=== PATIENT | female | born 1995 | race Caucasian/White ===

== ENCOUNTER → 2017-05-29 | Outpatient (CLI) | payer OTHER ==
[2017-05-29 14:49] LABS: LUTEINIZING HORMONE 7.3 mIU/mL; PROLACTIN 15.6 NG/ML
[2017-05-29 14:51] LABS: FREE T4 1.03 NG/DL (0.76-1.46)
[2017-05-29 14:57] LABS: PROGESTERONE 7.4 NG/ML
== END ==
LOC: M SMT 09:08
PROVIDERS: ATTEND Specialist
DX: N93.8 Other specified abnormal uterine and vaginal bleeding (principal)

== ENCOUNTER 2020-09-20 16:29 | Emergency (ER) | payer MEDICAID, OTHER ==
[~2020-09-20] VITALS: Ht 162.6 cm; Wt 99.2 kg
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
[2020-09-20] MEDS ORDERED: SUBO8MIS (16:59)
[2020-09-20] MEDS ORDERED: ESCI20TA16 (16:59)
[2020-09-20 19:19] LABS: BASO # 0.1 10^3/uL (0.0-0.2); BASO % 0.5 % (0.0-1.0); EOS # 0.2 10^3/uL (0.0-0.5); HEMOGLOBIN 11.9 g/dl (12.0-15.5); LYMPH # 2.9 10^3/uL (1.5-5.0); LYMPH % 30.2 % (24.0-44.0); MEAN CORPUSCULAR HEMOGLOBIN 27.9 pg (27.0-33.0); MEAN CORPUSCULAR HGB CONC 31.3 g/dl (32.0-36.5); MONO # 0.5 10^3/uL (0.0-0.8); MONO % 5.5 % (0.0-5.0); NEUTROPHILS % 61.5 % (36.0-66.0); PLATELET COUNT, AUTOMATED 333 10^3/uL (150-450); RED BLOOD COUNT 4.27 10^6/uL (4.00-5.40); WHITE BLOOD COUNT 9.7 10^3/uL (4.0-10.0)
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
[2020-09-20 19:45] LABS: BLOOD UREA NITROGEN 5 MG/DL (7-18); CALCIUM LEVEL 8.6 MG/DL (8.5-10.1); CARBON DIOXIDE LEVEL 28 MEQ/L (21-32); CHLORIDE LEVEL 105 MEQ/L (98-107); CREATININE FOR GFR 0.72 MG/DL (0.55-1.30); GLOMERULAR FILTRATION RATE > 60.0 (>60); GLUCOSE, FASTING 115 MG/DL (70-100); HCG, SERUM QUANTITATIVE 60 MIU/ML; POTASSIUM SERUM 3.8 MEQ/L (3.5-5.1); SODIUM LEVEL 140 MEQ/L (136-145)
--- NOTE | 2020-09-20 20:38 | REPVR ---
PROCEDURE INFORMATION: Exam: US First Trimester, Transabdominal Exam date and time: 09/20/2020 7:24 PM Age: 25 years old Clinical indication: Lmp or gestational age (in weeks): 07/16/2020; Other: Vaginal bleeding; ; Additional info: Vaginal bleeding preg TECHNIQUE: Imaging protocol: Real-time transabdominal obstetrical ultrasound of the maternal pelvis and a first trimester , less than 14 weeks 0 days, with image documentation. COMPARISON: No relevant prior studies available. FINDINGS: Gestation: There is an irregular possible gestational sac in the lower uterine segment and endocervical canal. No definite pole is seen. No yolk sac is seen. BIOMETRY: Gestational age (AUA): 9 weeks 3 days based on mean sac diameter. Estimated due date (AUA): 04/22/2021. Mean sac diameter: 0.77 cm. MATERNAL: Uterus: Unremarkable. Cervix: Unremarkable. Right adnexa: 1.3 cm cyst in the right ovary. Left adnexa: Left ovary is unremarkable. Intraperitoneal space: No intraperitoneal free fluid. IMPRESSION: Irregular possible gestational sac in the lower uterine segment without a definite pole or yolk sac concerning for in progress. Electronically signed by: Gigi Corea On 09/20/2020 20:37:23 PM
[2020-09-20 21:09] VITALS: BP 141/76
[2020-09-20 22:07] LABS: CHLAMYDIA DNA AMPLIFICATION NEGATIVE (NEGATIVE); GC DNA AMPLIFICATION NEGATIVE (NEGATIVE)
== END 2020-09-20 21:11 | disposition home or self-care (01) ==
LOC: M ED 16:29
DX: O20.0 Threatened abortion (principal); O26.891 Other specified pregnancy related conditions, first trimester; N80.9 Endometriosis, unspecified; O99.331 Smoking (tobacco) complicating pregnancy, first trimester; F17.210 Nicotine dependence, cigarettes, uncomplicated; Z79.899 Other long term (current) drug therapy; Z79.891 Long term (current) use of opiate analgesic; Z3A.09 9 weeks gestation of pregnancy

== ENCOUNTER → 2020-09-23 | Outpatient (CLI) | payer MEDICAID ==
[~2020-09-23] MED LIST: ESCI20TA16; SUBO8MIS
== END ==
LOC: M LAB 10:13
PROVIDERS: ATTEND Advanced Practice Midwife
DX: N93.9 Abnormal uterine and vaginal bleeding, unspecified (principal)

== ENCOUNTER → 2020-10-03 | Outpatient (REF) | payer OTHER ==
[~2020-10-03] MED LIST changes: +IBUP-1022 PO; +OXYC1TAB23 PO
[2020-10-03 16:28] LABS: THYROID STIMULATING HORMONE 1.51 uIU/ML (0.358-3.740)
== END ==
LOC: M PLALAB 13:35
PROVIDERS: ATTEND Advanced Practice Midwife
DX: O03.9 Complete or unspecified spontaneous abortion without complication (principal); N96 Recurrent pregnancy loss

== ENCOUNTER → 2020-10-05 | Outpatient (REF) | payer OTHER | LOC: M PLALAB 11:32 | PROVIDERS: ATTEND Specialist | DX: N92.6 Irregular menstruation, unspecified (principal) ==

== ENCOUNTER 2020-10-06 12:51 | Day surgery (SDC) | payer OTHER, SELFPAY ==
[~2020-10-06] VITALS: Ht 162.6 cm; Wt 96.2 kg
[~2020-10-06 12:51] MED LIST changes: -IBUP-1022 PO; -OXYC1TAB23 PO
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
--- OUTSIDE RECORDS SUMMARY | 2020-10-06 12:56 | CCD ---
Author Author [facility] Organization [facility] Address Unknown Phone Unavailable Care Team Providers Care Embroidery Machine Operator Name Role Phone Susan Nicole Unavailable PROBLEMS Type Condition ICD9-CM Code [id number] Code Onset Dates Condition S tatus SNOMED Code Notes Problem Fatigue 780.79 Active 28831343 Problem Abnormal menstrual periods N92.6 Active 55222 007 Problem Constipation 564.00 Active 59528111 ALLERGIES Allergen (clinical drug ingredient) Drug/Non Drug Allergy do cumented on EMR Reaction Allergy Type Onset Date Status hay fever Unknown Non Drug Allergy Active ENCOUNTERS from 1994 to 2020-10-04 Encounter Location Date Provider Diagnosis [facility] [address] [place] [phone] Sep, Susan Corey Recurrent loss N96 and Spontaneous in first trimester O03.9 IMMUNIZATIONS Vaccine Route Administration Date Status TDAP IM Intramuscular Jun 14, 2014 Administered Influenza (6mo & up) Fluzone IM Intramuscular Jun 14, 2014 Ad ministered SOCIAL HISTORY Tobacco Use: Social History Observation Description Date Details (start date - stop date) Current Smoker Sex Assigned At : Social History Observation Description Sex Assigned At Unknown Alcohol Screening: Question Answer Notes Did you have a drink containing alcohol in the past year? No Points 0 Interpretation Negative Tobacco Use: Question Answer Notes Are you a: current every day smoker REASON FOR REFERRAL No Information VITAL SIGNS Weight 217.0 lbs Sep, Weight-kg 98.43 kg Sep, Height 5'4" in Sep, BMI 37.24 kg/m2 Sep, Blood pressure systolic 134 mm Hg Sep, Blood pressure diastolic 84 mm Hg Sep, MEDICATIONS Medication SIG (Take, Route, Frequency, Duration) Notes Start Da te End Date Status Flonase 50 MCG/ACT 1 spray in each nostril Nasally Twice a day f or 30 day(s) Aug, Not-Taking Lexapro 20 MG 1 tablet Orally Once a day Active Sudafed 30 MG 1 tablet as needed Orally every 6 hrs for 5 day(s) Aug, Not-Taking Suboxone 8-2 MG 1 film under the tongue and allow to dissolve Sublingual Twice a day Active Neti Pot Sinus Wash 2300-700 MG as directed Nasally bid for 10 d ay(s) Aug, Not-Taking Zyrtec Allergy 10 MG 1 capsule Orally Once a day for 30 day(s) Active PROCEDURES No Information RESULTS Component Value Reference Range TSH Reviewed date:10/04/2020 09:41:55 Interpretation: Performing Lab:[facility], [facility] [address] [address] , [place] [address] THYROID STIMULATING HORMONE 1.510 0.358-3.740 REASON FOR VISIT F/U Miscarriage MEDICAL (GENERAL) HISTORY Type Description Date Medical History Depression/Anxiety Surgical History tonsillectomy 2011 Surgical History wisdom teeth extract 2012 Goals Section No Information Health Concerns No Information MEDICAL EQUIPMENT No Information MENTAL STATUS No Information FUNCTIONAL STATUS No Information ASSESSMENTS Encounter Date Diagnosis Assessment Notes Treatment Notes Treatm ent Clinical Notes Sep, Recurrent loss (ICD-10 - N96) Sep, Spontaneous in first trimester (ICD-10 - O03.9) PLAN OF TREATMENT Treatment Notes Test Name Order Date HCG, SERUM QUANTITATIVE 2020-10-04 Antiphospholipid Syndrome Comp 2020-10-04 Lupus Anticoagulant with RFX Send Out ONLY 2020-10-04 [facility] Pelvis non-OB COMPLETE US 2020-10-04 Next Appt Details 3 Weeks Reason:F/U Provider Name:Susan Nicole, 2020-10-27 1 0:00:00 AM, [address] [place], [phone], Follow Up:3 WeeksF/U
[2020-10-06] MEDS ORDERED: ROCURONIUM BROMIDE 50 MG/5 ML VIAL As Ordered ONE (13:43)
[2020-10-06] MEDS ORDERED: propofoL 200 MG/20 ML VIAL As Ordered ONE (13:44)
[2020-10-06] MEDS ORDERED: LIDOCAINE 2% 100MG/5ML SDV (FOR ANES.) As Ordered ONE (13:44)
[2020-10-06] MEDS ORDERED: MIDAZOLAM INJ 2MG/2ML VIAL (J2250 PER 1MG) As Ordered ONE (13:44)
[2020-10-06] MEDS ORDERED: dexameTHASONE 4 MG/ML 1ML VIAL (J1100 PER 1MG) As Ordered ONE (13:44)
[2020-10-06] MEDS ORDERED: BUPIVACAINE HCL 0.25% 30ML VIAL As Ordered ONE (13:46)
[2020-10-06] MEDS ORDERED: fentaNYL 100 MCG/2 ML INJECTION (J3010) As Ordered ONE (13:46)
[2020-10-06] MEDS ORDERED: SUGAMMADEX SODIUM 500 MG/5 ML VIAL (BRIDION) As Ordered ONE (14:47)
[2020-10-06] MEDS ORDERED: ONDANSETRON 4MG/2ML VIAL As Ordered ONE (14:47)
[2020-10-06] MEDS ORDERED: KETOROLAC 60MG 2ML VIAL As Ordered ONE (14:48)
[2020-10-06] MEDS ORDERED: NEOSTIGMINE 10MG/10ML VIAL (J2710 PER 0.5MG) As Ordered ONE (15:09)
[2020-10-06] MEDS ORDERED: GLYCOPYRROLATE INJ 0.2 MG/ML 2 ML VIAL As Ordered ONE (15:09)
--- NOTE | 2020-10-06 15:31 | ROOPDOC ---
[facility] Report Of Operation Report of Operation DATE OF PROCEDURE: 10/06/20 PREPROCEDURE DIAGNOSES: left ectopic POSTPROCEDURE DIAGNOSES: right isthmic fallopian tube PROCEDURE: Laparoscopic right salpingostomy. SURGEON: Fidelina Omer MD ANESTHESIA: Gen. endotracheal anesthesia. ESTIMATED BLOOD LOSS: Approximately 20 mL. COMPLICATIONS: None. FINDINGS: 1 cm ectopic in the isthmic portion of the right fallopian tube. Otherwise, normal uterus, ovaries, and left fallopian tube. normal upper abdomen. Approximately 50 mL of blood was noted in the posterior cul-de-sac. PROCEDURE NOTE: Patient was taken to the operating room where general endotracheal anesthesia induced. She was prepped draped in a sterile fashion in the dorsal lithotomy position. A sponge stick was placed in the vagina and uses manipulator. The bladder was emptied with a catheter. A periumbilical incision was made with the scalpel. A Veress needle was placed through this incision while tenting up on the skin of the abdomen. Intra-abdominal location of the Veress needle was assessed with use of a saline filled syringe. A pneumoperitoneum was created. The Veress needle was removed. A 5 mm trocar using the Visiport was inserted through this incision. A 5 and 8 mm suprapubic port was placed under direct visualization without difficulty. A 5 mm scope with camera used to visualize the abdomen and pelvis. The patient was placed in Trendelenburg position. A grasping instrument was used to elevate the right fallopian tube. A Harmonic scalpel device was used to make an incision in the antimesenteric side of the fallopian tube in the isthmic region. A grasping instrument was used to milk the ectopic gestation out of the tube. Specimen was removed intact through the 8 mm port with a grasping instrument. Good hemostasis of the right fallopian tube was noted. Suction rn review was used to evacuate blood from the pelvis.. All instruments were removed. The pneumoperitoneum was released. The skin was closed with 4-0 Monocryl subcuticular sutures. Sponge, instrument and needle counts were correct. FIDELINA OMER MD Oct 06, 2020 15:31
[2020-10-06] MEDS ORDERED: MEPERIDINE INJ 25 MG/ML VIAL (J2175) As Ordered ONE (15:37)
[2020-10-06] MEDS ORDERED: oxyCODONE 5MG TAB As Ordered ONE (15:49)
[2020-10-06] MEDS: oxyCODONE 5MG TAB PO PRN ×2 (15:54→16:24)
[2020-10-06] MEDS ORDERED: LR 1,000 ML IV SCH ×2 (16:00)
[2020-10-06] MEDS ORDERED: ONDANSETRON 4MG/2ML VIAL IV PRN (16:00)
[2020-10-06] MEDS ORDERED: METOCLOPRAMIDE INJ 10MG/2ML VIAL (J2765 PER 1) IV PRN (16:00)
[2020-10-06] MEDS ORDERED: fentaNYL 100 MCG/2 ML INJECTION (J3010) IV PRN (16:00)
[2020-10-06] MEDS ORDERED: PERCOCET 5MG/325MG TAB PO PRN (16:00)
[2020-10-06] MEDS ORDERED: MEPERIDINE INJ 25 MG/ML VIAL (J2175) IV PRN (16:00)
[2020-10-06] MEDS ORDERED: OXYC1TAB23 PO (16:39)
[2020-10-06] MEDS ORDERED: IBUP-1022 PO (16:40)
[2020-10-06 17:30] VITALS: BP 126/68
== END 2020-10-06 17:30 | disposition home or self-care (01) ==
LOC: M SDC 12:51
PROVIDERS: ATTEND Specialist
DX: O00.80 Other ectopic pregnancy without intrauterine pregnancy (principal); F32.9 Major depressive disorder, single episode, unspecified; F41.9 Anxiety disorder, unspecified; F17.210 Nicotine dependence, cigarettes, uncomplicated
CPT/HCPCS: 59150; 88305; J1100; J1885; J2175; J2250; J2405; J2710; J3010; U0002

== ENCOUNTER → 2021-11-19 | Outpatient (REF) | payer OTHER ==
[~2021-11-19] MED LIST changes: +IBUP-1022 PO; +OXYC1TAB23 PO
== END ==
LOC: M SFHCWAGY 10:25
PROVIDERS: ATTEND Specialist
DX: Z01.419 Encounter for gynecological examination (general) (routine) without abnormal findings (principal)

== ENCOUNTER 2022-03-23 16:53 | Emergency (ER) | payer OTHER ==
[~2022-03-23] VITALS: Ht 162.6 cm; Wt 94.3 kg
[2022-03-23 19:22] LABS: BASO % 0.3 % (0.0-1.0); EOS # 0.1 10^3/uL (0.0-0.5); EOS % 0.8 % (0.0-3.0); HEMOGLOBIN 11.9 g/dl (12.0-15.5); LYMPH # 2.4 10^3/uL (1.5-5.0); LYMPH % 31.3 % (24.0-44.0); MEAN CORPUSCULAR HEMOGLOBIN 29.7 pg (27.0-33.0); MEAN CORPUSCULAR HGB CONC 33.1 g/dl (32.0-36.5); MEAN CORPUSCULAR VOLUME 89.8 fl (80.0-96.0); MONO # 0.5 10^3/uL (0.0-0.8); MONO % 6.1 % (2.0-8.0); NEUTROPHILS # 4.6 10^3/uL (1.5-8.5); NEUTROPHILS % 61.1 % (36.0-66.0); PLATELET COUNT, AUTOMATED 290 10^3/uL (150-450); RED BLOOD COUNT 4.01 10^6/uL (4.00-5.40); WHITE BLOOD COUNT 7.5 10^3/uL (4.0-10.0)
[2022-03-23 20:42] VITALS: BP 120/70
== END 2022-03-23 20:43 | disposition home or self-care (01) ==
LOC: M ED 16:53
DX: O02.1 Missed abortion (principal); O99.341 Other mental disorders complicating pregnancy, first trimester; F32.A Depression, unspecified; F41.9 Anxiety disorder, unspecified; Z79.899 Other long term (current) drug therapy; Z79.891 Long term (current) use of opiate analgesic; O99.331 Smoking (tobacco) complicating pregnancy, first trimester; F17.200 Nicotine dependence, unspecified, uncomplicated; Z3A.00 Weeks of gestation of pregnancy not specified

== ENCOUNTER → 2022-03-25 | Outpatient (CLI) | payer OTHER | LOC: M LAB 12:16 | PROVIDERS: ATTEND Obstetrics & Gynecology | DX: Z34.81 Encounter for supervision of other normal pregnancy, first trimester (principal); Z3A.01 Less than 8 weeks gestation of pregnancy ==

== ENCOUNTER → 2022-04-19 | Outpatient (REF) | LOC: M EMP 09:56 | PROVIDERS: ATTEND Family Medicine | DX: Z11.52 Encounter for screening for COVID-19 (principal) ==

== ENCOUNTER → 2022-04-24 | Outpatient (CLI) | payer OTHER ==
[2022-04-24 15:59] LABS: FREE T4 0.97 NG/DL (0.76-1.46); THYROID STIMULATING HORMONE 0.599 uIU/ML (0.358-3.740)
[2022-04-25 16:08] LABS: CARDIOLIPIN IGA ANTIBODY <9 APL U/mL (0-11); CARDIOLIPIN IGG ANTIBODY <9 GPL U/mL (0-14); CARDIOLIPIN IGM ANTIBODY 13 MPL U/mL (0-12)
== END ==
LOC: M PLALAB 12:09
PROVIDERS: ATTEND Obstetrics & Gynecology
DX: N96 Recurrent pregnancy loss (principal)

== ENCOUNTER → 2022-05-15 | Outpatient (REF) | LOC: M EMP 14:31 | PROVIDERS: ATTEND Family Medicine | DX: Z11.52 Encounter for screening for COVID-19 (principal) ==

== ENCOUNTER → 2022-05-20 | Outpatient (REF) | LOC: M LABSMTC 10:30 | PROVIDERS: ATTEND Family Medicine | DX: Z11.52 Encounter for screening for COVID-19 (principal) ==